=== PATIENT | female | born 1985 | race Caucasian/White ===

== ENCOUNTER 2023-04-09 15:05 | Emergency (ER) | payer OTHER ==
[~2023-04-09] VITALS: Ht 170.2 cm; Wt 61.0 kg
[2023-04-09] MEDS ORDERED: METR-167 MT (16:54)
[2023-04-09 17:02] VITALS: BP 121/76
== END 2023-04-09 17:22 | disposition home or self-care (01) ==
LOC: ER 15:05
DX: N76.0 Acute vaginitis (principal); F41.9 Anxiety disorder, unspecified
CPT/HCPCS: 99283; Z7610